=== PATIENT | male | born 1995 | race Caucasian/White ===

== ENCOUNTER 2018-09-09 07:32 | Emergency (ER) | payer BC ==
[2018-09-09 08:24] LABS: ABSOLUTE NEUTROPHIL COUNT 7.12; BASO % 0.3 % (0-6); GRAN % 71.7 % (47-80); HEMATOCRIT 44.9 % (42.0-52.0); HEMOGLOBIN 15.8 gm/dl (14.0-18.0); LYMPH % 19.5 % (16-45); MEAN CELL VOLUME 84.9 fl (81-97); MEAN CORPUSCULAR HEMOGLOBIN 29.9 pg (27-33); MEAN CORPUSCULAR HGB CONC 35.2 g/dl (32-36); MEAN PLATELET VOLUME 8.7 fl (7.4-10.4); MONO % 7.5 % (0-9); PLATELET COUNT 239 K/uL (130-400); RED BLOOD COUNT 5.29 M/uL (4.40-5.70); WHITE BLOOD COUNT W/O DIFF 9.9 K/uL (4.2-12.2)
[2018-09-09 08:30] LABS: BLOOD UREA NITROGEN 16 mg/dL (6-20); CREATININE 0.8 mg/dL (0.7-1.2); EST GLOMERULAR FILTRATION RATE > 60 mL/min
[2018-09-09 08:33] LABS: GLUCOSE,RANDOM 106 mg/dL (74-109)
[2018-09-09 08:38] LABS: URINE APPEARANCE CLEAR; URINE BILIRUBIN NEGATIVE (NEGATIVE); URINE BLOOD NEGATIVE (NEGATIVE); URINE COLOR YELLOW; URINE GLUCOSE (UA) NEGATIVE (NEGATIVE); URINE KETONE NEGATIVE (NEGATIVE); URINE LEUKOCYTE ESTERASE NEGATIVE (NEGATIVE); URINE NITRITE NEGATIVE (NEGATIVE); URINE PROTEIN NEGATIVE (NEGATIVE); URINE UROBILINOGEN 0.2 E.U./dL (0.20 - 1.00)
--- NOTE | 2018-09-09 08:43 | Emergency Department Record ---
History of Present Illness - General Chief Complaint: Numbness Stated Complaint: WAS HAVING NUMBNESS IN LEGS Time Seen by Provider: 09/09/18 08:02 Source: Patient Mode of Arrival: Ambulatory Limitations: No limitations - History of Present Illness Initial Comments: pt had 15min of tingling in arms, legs and face. he was nuaseated at the time. his symptoms have resolved Onset/Timin -: Minutes(s) Location: Left arm, Right arm, Left face, Right face, Left leg, Right leg History of same: Yes Place: Home Severity: Mild Quality: Numb, Tingling Context: Sudden onset Treatments Prior to Arrival: None - [place] Coma Scale Eye Response: (4) Open spontaneously Motor Response: (6) Obeys commands Verbal Response: (5) Oriented [place] Total: 15 - Symptoms of Stroke Symptoms of stroke: Numbness - Related Data Home Medications: Home Medications Medication Instructions Recorded Confirmed Last Taken Omeprazole 20 mg PO BID 09/09/18 09/09/18 1 Day Ago ~09/08/18 Sucralfate [Carafate] 1 gm PO QID 09/09/18 09/09/18 1 Day Ago ~09/08/18 Allergies/Adverse Reactions: Allergies Allergy/AdvReac Type Severity Reaction Status Date / Time MRI contrast dye Allergy RASH Uncoded 09/09/18 07:45 Travel Screening - Travel/Exposure Within Last 30 Days Have you traveled within the last 30 days?: No - Travel/Exposure Within Last Year Have you traveled outside the [place] in the last year?: No - Additonal Travel Details Have you been exposed to anyone with a communicable illness?: No - Travel Symptoms Symptom Screening: None Review of Systems Reviewed: No additional complaints except as noted below Constitutional: Reports: As per HPI. Denies: Chills, Fever, Malaise, Night sweats, Weakness, Weight change Eyes: Reports: As per HPI. Denies: Eye discharge, Eye pain, Photophobia, Vision change ENT: Reports: As per HPI. Denies: Congestion, Dental pain, Ear pain, Epistaxis, Hearing loss, Throat pain Respiratory: Reports: As per HPI. Denies: Cough, Dyspnea, Hemoptysis, Stridor, Wheezes Cardiovascular: Reports: As per HPI. Denies: Arrhythmia, Chest pain, Dyspnea on exertion, Edema, Murmurs, Orthopnea, Palpitations, Paroxysmal nocturnal dyspnea, Rheumatic Fever, Syncope Endocrine: Reports: As per HPI. Denies: Fatigue, Heat or cold intolerance, Polydipsia, Polyuria Gastrointestinal: Reports: As per HPI. Denies: Abdominal pain, Constipation, Diarrhea, Hematemesis, Hematochezia, Melena, Nausea, Vomiting Genitourinary: Reports: As per HPI. Denies: Dysuria, Frequency, Hematuria, Incontinence, Retention, Testicular pain, Testicular mass, Urgency Musculoskeletal: Reports: As per HPI. Denies: Arthralgia, Back pain, Gout, Join t swelling, Myalgia, Neck pain Skin: Reports: As per HPI. Denies: Bruising, Change in color, Change in hair/nails, Lesions, Pruritus, Rash Neurological: Reports: As per HPI, Tingling. Denies: Abnormal gait, Confusion, Headache, Numbness, Paresthesias, Seizure, Tremors, Vertigo, Weakness Psychiatric: Reports: As per HPI. Denies: Anxiety, Auditory hallucinations, Depression, Homicidal thoughts, Suicidal thoughts, Visual hallucinations Hematological/Lymphatic: Reports: As per HPI. Denies: Anemia, Blood Clots, Easy bleeding, Easy bruising, Swollen glands Past Medical History - SOCIAL HISTORY Smoking Status: Never smoker Alcohol Use: Rare, Occasional Drug Use: Occasional - RESPIRATORY Hx Respiratory Disorders: Yes - CARDIOVASCULAR Hx Cardio Disorders: Yes - NEURO Hx Neuro Disorders: Yes - GI Hx GI Disorders: Yes Hx Reflux: Yes (Barretts) Hx Ulcer: Yes - Hx Genitourinary Disorders: No - ENDOCRINE Hx Endocrine Disorders: No - MUSCULOSKELETAL Hx Musculoskeletal Disorders: No - PSYCH Hx Psych Problems: Yes Hx Anxiety: Yes Hx Depression: Yes Comment:: mild - HEMATOLOGY/ONCOLOGY Hx Hematology/Oncology Disorders: No Family Medical History Any Significant Family History?: Yes Physical Exam - General General Appearance: Alert, Oriented x3, Cooperative, No acute distress - Head Head exam: Normal inspection - Eye Eye exam: Normal appearance, PERRL, EOMI Pupils: Normal accommodation - ENT ENT exam: Normal exam, Mucous membranes moist, Normal external ear exam, Normal orophraynx Ear exam: Normal external inspection. negative: External canal tenderness Nasal Exam: Normal inspection. negative: Discharge, Sinus tenderness Mouth exam: Normal external inspection, Tongue normal Teeth exam: Normal inspection. negative: Dental caries Throat exam: Normal inspection. negative: Tonsillar erythema, Tonsillar exudate - Neck Neck exam: Normal inspection, Full ROM. negative: Tenderness - Respiratory Respiratory exam: Normal lung sounds bilaterally. negative: Respiratory distress - Cardiovascular Cardiovascular Exam: Regular rate, Normal rhythm, Normal heart sounds - GI/Abdominal GI/Abdominal exam: Soft, Normal bowel sounds. negative: Tenderness - Rectal Rectal exam: Deferred - exam: Deferred - Extremities Extremities exam: Normal inspection, Full ROM, Normal capillary refill. negative: Tenderness - Back Back exam: Reports: Normal inspection, Full ROM. Denies: Muscle spasm, Rash noted, Tenderness - Neurological Neurological exam: Alert, CN II-XII intact, Normal gait, Oriented X3 - Psychiatric Psychiatric exam: Normal affect, Normal mood - Skin Skin exam: Dry, Intact, Normal color, Warm Course Vital Signs 09/09/18 07:35 Temperature 98.2 F Pulse Rate 77 Respiratory 18 Rate Blood Pressure 142/75 Pulse Ox 98 Medical Decision Making - Lab Data Result diagrams: 09/09/18 08:15 09/09/18 08:15 Lab Results 09/09/18 09/09/18 Range/Units 08:15 08:15 WBC 9.9 (4.2-12.2) K/uL RBC 5.29 (4.40-5.70) M/uL Hgb 15.8 (14.0-18.0) gm/dl Hct 44.9 (42.0-52.0) % MCV 84.9 (81-97) fl MCH 29.9 (27-33) pg MCHC 35.2 (32-36) g/dl RDW 12.0 (11.5-14.5) % Plt Count 239 (130-400) K/uL MPV 8.7 (7.4-10.4) fl Gran % 71.7 (47-80) % Lymphocytes % 19.5 (16-45) % Monocytes % 7.5 (0-9) % Eosinophils % 1.0 (0-6) % Basophils % 0.3 (0-6) % Absolute Neutrophils 7.12 Sodium 140 (136-145) mmol/L Potassium 4.1 (3.4-4.5) mmol/L Chloride 103 (98-107) mmol/L Carbon Dioxide 26.0 (22-29) mmol/L Anion Gap 11.0 (7-16) BUN 16 (6-20) mg/dL Creatinine 0.8 (0.7-1.2) mg/dL Estimated GFR > 60 mL/min Random Glucose 106 (74-109) mg/dL Calcium 9.6 (8.6-10.0) mg/dL Disposition Disposition: Discharge Clinical Impression: Hyperventilation, Tingling Disposition: Home, Self-Care Condition: (1) Good Instructions: Hyperventilation (ED) Additional Instructions: follow up with family doctor. return sooner if worse Forms: Patient Portal Access Quality - Quality Measures Quality Measures: N/A - Blood Pressure Screening Does Patient Have Any of the Following: No Blood Pressure Classification: Hypertensive Reading Systolic Measurement: 142 Diastolic Measurement: 75 Screening for High Blood Pressure: < First Hypertensive BP, F/U Documented > [G8950] First Hypertensive Follow-up Interventions: Follow-up with rescreen GT 1 day and LT 4 weeks.
--- NOTE | 2018-09-10 09:41 | CT SCAN REPORT ---
EXAM: CT OF THE HEAD WITHOUT CONTRAST HISTORY: NAUSEA AND EXTREMITY NUMBNESS THIS MORNING. NO KNOWN INJURY. TECHNIQUE: Routine noncontrast CT of the head was obtained. Comparison: None. FINDINGS: The ventricles and subarachnoid spaces are normal in size. There is a normal variant cavum septum pellucidum/cavum vergae. No area of abnormally increased or decreased attenuation is noted throughout the brain substance. No abnormal extraaxial fluid collection is seen. There is mucosal thickening within the inferior aspect of the right frontal sinus. The paranasal sinuses and mastoid air cells are otherwise clear. Prominent cerumen is suggested in the external auditory canals. The orbits to the extent visualized are normal in appearance. IMPRESSION: 1. NO INTRACRANIAL ABNORMALITY IDENTIFIED. 2. MINOR MUCOSAL THICKENING WITHIN THE INFERIOR ASPECT OF THE RIGHT FRONTAL SINUS. 3. PROMINENT CERUMEN SUGGESTED WITHIN THE EXTERNAL AUDITORY CANALS. JOB NUMBER: [id number] MTDD
== END 2018-09-09 09:33 | disposition home or self-care (01) ==
LOC: ER 07:32
DX: R06.4 Hyperventilation (principal); R20.2 Paresthesia of skin; R11.0 Nausea
CPT/HCPCS: 70450; 80048; 81003; 84443; 85025; 99283; 99284